=== PATIENT | female | born 1930 | race Caucasian/White ===

== ENCOUNTER 2017-10-28 15:23 | Emergency (ER) | payer BC, MEDICARE ==
[2017-10-28] MEDS ORDERED: Metoprolol Tartrate 5 MG/5 ML SDV IVPUSH SCH (17:15)
[2017-10-28] MEDS ORDERED: Sodium Chloride 0.9% 10 ML Syringe FLUSH PRN (17:20)
[2017-10-28] MEDS ORDERED: Sodium Chloride 0.9% 2.5 ML Syringe FLUSH PRN (17:20)
[2017-10-28] MEDS ORDERED: cloNIDine 0.1 MG Tab PO ONE (17:21)
--- NOTE | 2017-10-28 17:23 | EDM.PDOC ---
ED HPI GENERAL MEDICAL PROBLEM - General Chief Complaint: General Stated Complaint: HIGH BP Time Seen by Provider: 10/28/17 17:21 Source of Information: Reports: Patient History Limitations: Reports: No Limitations - History of Present Illness INITIAL COMMENTS - FREE TEXT/NARRATIVE: HISTORY AND PHYSICAL: []86-year-old female is brought in by her family with concerns over hypertension History of Present Illness: []Patient was slightly confused yesterday and is having a little difficulty. She has history of having hypertension and not well regulated with her medications She lives at the [facility] Review of Systems: As per history of present illness and below otherwise all systems reviewed and negative. Past medical history: As per history of present illness and as reviewed below otherwise noncontributory. Surgical history: As per history of present illness and as reviewed below otherwise noncontributory. Social history: No reported history of drug or alcohol abuse. Family history: As per history of present illness and as reviewed below otherwise noncontributory. Physical exam: Alert female answering questions appropriately in full sentences without any shortness of breath HEENT: Atraumatic, normocehpalic, pupils reactive, negative for conjunctival pallor or scleral icterus, mucous membranes moist, throat clear, neck supple, nontender, trachea midline. Lungs: Clear to auscultation, breath sounds equal bilaterally, chest non tender. Heart: S1S2, regular, negative for clicks, rubs, or JVD. Abdomen: Soft, nondistended, nontender. Negative for masses or hepatossplenmegaly. Negative for costovertebral tenderness. Pelvis: Stable nontender. Genitourinary: Deferred. Rectal: Deferred Extremities: Atraumatic, negative for cords or calf pain. Neurovascular unremarkable. Neuro: Awake, alert, oriented. Cranial nerves II through XII unremarkable. Cerebellum unremarkable. Motor and sensory unremarkable throughout. Exam nonfocal. Patient is feeling better and her blood pressures trending down to 190/59. Diagnostics: []CBC CMP UA EKG Urine culture Therapeutics: []Clonidine 0.1 now Impression: []Hypertension uncontrolled Plan: []Discharge home Follow-up with Dr. Harrison see tomorrow Definitive disposition and diagnosis as appropriate pending reevaluation and review of above. Onset: Today Duration: Chronic - Related Data Allergies Allergy/AdvReac Type Severity Reaction Status Date / Time Sulfa (Sulfonamide Allergy Cannot Verified 10/28/17 15:42 Antibiotics) Remember Home Meds: Home Meds LORazepam 0.5 mg PO TID PRN 08/01/15 [History] Aspirin 81 mg PO DAILY 04/26/16 [History] Escitalopram [Lexapro] 10 mg PO DAILY 04/26/16 [History] Acetaminophen 650 mg PO Q4H PRN 10/28/17 [History] Alum Hydrox/Mag Hydrox/Simeth [Maalox Advanced] 1 - 2 tbsp PO QID PRN 10/28/17 [ History] Dextran 70/Hypromellose [Artificial Tears] 1 drop EYEBOTH QID PRN 10/28/17 [ History] Guiatussin 1 tsp PO Q4H PRN 10/28/17 [History] Lisinopril 30 mg PO DAILY 10/28/17 [History] Loperamide [Imodium] 2 cap PO DAILY PRN 10/28/17 [History] Magnesium Hydroxide [Milk of Magnesia] 2 tbsp PO DAILY PRN 10/28/17 [History] Meloxicam 15 mg PO DAILY 10/28/17 [History] Past Medical History HEENT History: Reports: None Cardiovascular History: Reports: None, Hypertension Respiratory History: Reports: None, Other (See Below) Other Respiratory History: sarcoidosis Gastrointestinal History: Reports: None Genitourinary History: Reports: UTI, Recurrent [employer] History: Reports: Musculoskeletal History: Reports: None, Other (See Below) Other Musculoskeletal History: chronic knee pain Neurological History: Reports: None Psychiatric History: Reports: Anxiety Endocrine/Metabolic History: Reports: None Hematologic History: Reports: None Immunologic History: Reports: None Oncologic (Cancer) History: Reports: Colon Other Oncologic History: hx colon ca 10 years ago. Dermatologic History: Reports: None - Infectious Disease History Infectious Disease History: Reports: None - Past Surgical History Head Surgeries/Procedures: Reports: None HEENT Surgical History: Reports: Other (See Below) Cardiovascular Surgical History: Reports: None Respiratory Surgical History: Reports: None GI Surgical History: Reports: Colon Endocrine Surgical History: Reports: None Neurological Surgical History: Reports: None Musculoskeletal Surgical History: Reports: None Dermatological Surgical History: Reports: None Social & Family History - Family History Family Medical History: Unobtainable - Tobacco Use Smoking Status *Q: Never Smoker Second Hand Smoke Exposure: No - Caffeine Use Caffeine Use: Reports: Coffee - Recreational Drug Use Recreational Drug Use: No - Living Situation & Occupation Living situation: Reports: Occupation: Retired ED ROS GENERAL - Review of Systems Review Of Systems: ROS reveals no pertinent complaints other than HPI. ED EXAM, GENERAL - Physical Exam Exam: See Below (see dictation) EKG INTERPRETATION Rhythm: NSR Comparison: No Change Course - Vital Signs Last Recorded V/S: Last Vital Signs Temp 36.7 C 10/28/17 16:55 Pulse 70 10/28/17 16:55 Resp 13 10/28/17 16:55 BP 210/77 H 10/28/17 17:26 Pulse Ox 98 10/28/17 16:55 - Orders/Labs/Meds Orders: Active Orders 24 hr Category Date Time Status EKG 12 Lead [EKG Documentation Completion] [RC] STAT Care 10/28/17 15:53 Active COMPREHENSIVE METABOLIC PN,CMP [CHEM] Stat Lab 10/28/17 17:43 Received CULTURE URINE [RM] Stat Lab 10/28/17 17:40 Received UA W/MICROSCOPIC [URIN] Stat Lab 10/28/17 17:40 Ordered Sodium Chloride 0.9% [Saline Flush] Med 10/28/17 17:20 Active 10 ml FLUSH ASDIRECTED PRN Sodium Chloride 0.9% [Saline Flush] Med 10/28/17 17:20 Active 2.5 ml FLUSH ASDIRECTED PRN Saline Lock Insert [OM.PC] Stat Oth 10/28/17 17:20 Ordered Medication Orders Sodium Chloride (Saline Flush) 10 ml FLUSH ASDIRECTED PRN PRN Reason: Keep Vein Open Sodium Chloride (Saline Flush) 2.5 ml FLUSH ASDIRECTED PRN PRN Reason: Keep Vein Open Labs: Laboratory Tests 10/28/17 10/28/17 Range/Units 17:40 17:43 WBC 10.15 (4.0-11.0) K/uL RBC 4.20 L (4.30-5.90) M/uL Hgb 12.3 (12.0-16.0) g/dL Hct 37.8 (36.0-46.0) % MCV 90.0 (80.0-98.0) fL MCH 29.3 (27.0-32.0) pg MCHC 32.5 (31.0-37.0) g/dL RDW Std Deviation 46.3 (28.0-62.0) fl RDW Coeff of [place] 14 (11.0-15.0) % Plt Count 356 (150-400) K/uL MPV 9.80 (7.40-12.00) fL Neut % (Auto) 47.3 L (48.0-80.0) % Lymph % (Auto) 40.6 H (16.0-40.0) % [place]on % (Auto) 5.7 (0.0-15.0) % Eos % (Auto) 5.5 (0.0-7.0) % Baso % (Auto) 0.9 (0.0-1.5) % Neut # (Auto) 4.8 (1.4-5.7) K/uL Lymph # (Auto) 4.1 H (0.6-2.4) K/uL Harmon # (Auto) 0.6 (0.0-0.8) K/uL Eos # (Auto) 0.6 (0.0-0.7) K/uL Baso # (Auto) 0.1 (0.0-0.1) K/uL Nucleated RBC % 0.0 /100WBC Nucleated RBCs # 0 K/uL Urine Color YELLOW Urine Appearance CLEAR Urine pH 6.0 (5.0-8.0) Ur Specific [place] 1.015 (1.001-1.035) Urine Protein NEGATIVE (NEGATIVE) mg/dL Urine Glucose (UA) NEGATIVE (NEGATIVE) mg/dL Urine Ketones NEGATIVE (NEGATIVE) mg/dL Urine Occult Blood NEGATIVE (NEGATIVE) Urine Nitrite NEGATIVE (NEGATIVE) Urine Bilirubin NEGATIVE (NEGATIVE) Urine Urobilinogen 0.2 (<2.0) EU/dL Ur Leukocyte Esterase NEGATIVE (NEGATIVE) Urine RBC 0-1 (0-2/HPF) Urine WBC 0-1 (0-5/HPF) Ur Epithelial Cells RARE (NONE-FEW) Urine Bacteria RARE (NEGATIVE) Meds: Medications Generic Name Dose Route Start Last Admin Trade Name Freq PRN Reason Stop Dose Admin Sodium Chloride 10 ml 10/28/17 17:20 Saline Flush FLUSH ASDIRECTED PRN Keep Vein Open Sodium Chloride 2.5 ml 10/28/17 17:20 Saline Flush FLUSH ASDIRECTED PRN Keep Vein Open Discontinued Medications Generic Name Dose Route Start Last Admin Trade Name Kiesha PRN Reason Stop Dose Admin Clonidine HCl 0.1 mg 10/28/17 17:21 10/28/17 17:26 Catapres PO 10/28/17 17:22 0.1 mg ONETIME ONE Administration Metoprolol Tartrate 5 mg 10/28/17 17:15 10/28/17 17:28 Lopressor IVPUSH 10/28/17 17:26 Not Given Q5M LETI Departure - Departure Time of Disposition: 18:10 Disposition: Home, Self-Care 01 Condition: Good Clinical Impression: Hypertension Qualifiers: Hypertension type: unspecified Qualified Code(s): I10 - Essential (primary) hypertension - Discharge Information Instructions: Hypertension Referrals: PCP,Unknown [Primary Care Provider] - Forms: ED Department Discharge Additional Instructions: The following information is given to patients seen in the emergency department who are being discharged to home. This information is to outline your options for follow-up care. We provide all patients seen in our emergency department with a follow-up referral. The need for follow-up, as well as the timing and circumstances, are variable depending upon the specifics of your emergency department visit. If you don't have a primary care physician on staff, we will provide you with a referral. We always advise you to contact your personal physician following an emergency department visit to inform them of the circumstance of the visit and for follow-up with them and/or the need for any referrals to a consulting specialist. The emergency department will also refer you to a specialist when appropriate. This referral assures that you have the opportunity for followup care with a specialist. All of these measure are taken in an effort to provide you with optimal care, which includes your followup. Under all circumstances we always encourage you to contact your private physician who remains a resource for coordinating your care. When calling for followup care, please make the office aware that this follow-up is from your recent emergency room visit. If for any reason you are refused follow-up, please contact the [facility] emergency department at and asked to speak to the emergency department charge nurse. Follow-up with your primary care doctor tomorrow You were given clonidine 0.1 while in the emergency department and blood pressures trending down Return as needed as directed and discussed to the emergency room - My Orders Last 24 Hours: My Active Orders 10/28/17 15:53 EKG 12 Lead [EKG Documentation Completion] [RC] STAT 10/28/17 17:20 Sodium Chloride 0.9% [Saline Flush] 10 ml FLUSH ASDIRECTED PRN Sodium Chloride 0.9% [Saline Flush] 2.5 ml FLUSH ASDIRECTED PRN Saline Lock Insert [OM.PC] Stat 10/28/17 17:40 CULTURE URINE [RM] Stat UA W/MICROSCOPIC [URIN] Stat 10/28/17 17:43 COMPREHENSIVE METABOLIC PN,CMP [CHEM] Stat - Assessment/Plan Last 24 Hours: My Active Orders 10/28/17 15:53 EKG 12 Lead [EKG Documentation Completion] [RC] STAT 10/28/17 17:20 Sodium Chloride 0.9% [Saline Flush] 10 ml FLUSH ASDIRECTED PRN Sodium Chloride 0.9% [Saline Flush] 2.5 ml FLUSH ASDIRECTED PRN Saline Lock Insert [OM.PC] Stat 10/28/17 17:40 CULTURE URINE [RM] Stat UA W/MICROSCOPIC [URIN] Stat 10/28/17 17:43 COMPREHENSIVE METABOLIC PN,CMP [CHEM] Stat
[2017-10-28 20:17] VITALS: BP 144/56
== END 2017-10-28 18:30 | disposition home or self-care (01) ==
LOC: MW.ED 15:23
DX: I10 Essential (primary) hypertension (principal); F41.9 Anxiety disorder, unspecified; Z79.82 Long term (current) use of aspirin; Z79.899 Other long term (current) drug therapy; Z88.2 Allergy status to sulfonamides; Z87.440 Personal history of urinary (tract) infections
CPT/HCPCS: 36415; 80053; 81001; 85025; 87086; 93005; 99284; A9270